=== PATIENT | male | born 1990 | race Asian ===

== ENCOUNTER 2023-09-10 16:05 | Observation (INO) ==
[2023-09-10 16:29] LABS: ABS Eosinophils 0.1 10^3/uL (0.0-0.5); ABS Lymphocytes 1.8 10^3/uL (1.0-4.8); ABS Monocytes 0.5 10^3/uL (0.0-1.1); ABS Neutrophils 4.3 10^3/uL (1.5-7.6); ABS Nucleated RBC 0.02 10^3/ul; Eosinophil % 0.8 %; Hematocrit 47.3 % (38-53); Hemoglobin 16.5 g/dL (13.2-16.3); Lymphocyte % 27.4 %; Mean Corpuscular Hemoglobin 29.9 pg (27-33); Mean Corpuscular Volume 85.5 fL (80-97); Nucleated Red Blood Cells % 0.3 %/100WBC (0.0-0.8); Platelet Count 188 10^3/uL (150-450); Red Blood Count 5.53 10^6/uL (4.06-5.63); Red Cell Distribution Width 13.4 % (12-17); White Blood Count 6.7 10^3/uL (3.6-10.2)
[2023-09-10 16:36] LABS: INR 1.02 (0.83-1.13)
[2023-09-10 17:35] LABS: Albumin 4.6 g/dL (3.2-5.2); Albumin/Globulin Ratio 2.1 (1-3); Creatinine, Serum 1.05 mg/dL (0.67-1.17); Globulin 2.2 g/dL (2-4); Total Bilirubin 0.6 mg/dL (0.2-1.0); Total Protein 6.8 g/dL (6.4-8.9); eGFR CKD-EPI 97.3 (>60)
[2023-09-10 18:02] LABS: High Sensitivity Troponin 1 Hr 14 pg/mL (<20)
[2023-09-10 19:45] LABS: C Reactive Protein 1.03 mg/L (<8.01)
[2023-09-10] MEDS: Iohexol 350 (CONTRAST) 500 ML MDV IV ONE (21:19)
[2023-09-11 01:05] LABS: HDL Cholesterol 55.4 mg/dL
[2023-09-11 01:20] LABS: TSH Ultra Thyroid Stim Horm 1.8 mcIU/mL (0.34-5.60)
[2023-09-11 06:22] LABS: ABS Eosinophils 0.1 10^3/uL (0.0-0.5); ABS Lymphocytes 1.8 10^3/uL (1.0-4.8); ABS Monocytes 0.4 10^3/uL (0.0-1.1); ABS Neutrophils 3.4 10^3/uL (1.5-7.6); ABS Nucleated RBC 0.02 10^3/ul; Eosinophil % 2.2 %; Hemoglobin 16.7 g/dL (13.2-16.3); Mean Corpuscular Hemoglobin 30.4 pg (27-33); Mean Corpuscular Hgb Conc 35.4 g/dL (31-36); Mean Corpuscular Volume 85.8 fL (80-97); Mean Platelet Volume 9.6 fL (7.5-11.2); Nucleated Red Blood Cells % 0.3 %/100WBC (0.0-0.8); Platelet Count 169 10^3/uL (150-450); Red Blood Count 5.48 10^6/uL (4.06-5.63); Red Cell Distribution Width 13.5 % (12-17); White Blood Count 5.8 10^3/uL (3.6-10.2)
[2023-09-11 06:39] LABS: Calcium 9.4 mg/dL (8.6-10.3); Creatinine, Serum 0.97 mg/dL (0.67-1.17)
[2023-09-11 15:20] VITALS: BP 129/79
[2023-09-11] MEDS ORDERED: Ondansetron ODT 4 mg TAB 4 MG TAB SL PRN (16:25)
== END 2023-09-11 17:30 | disposition home or self-care (01) ==
LOC: ED 16:05 → EDHOLD 16:05 → SUATTDRO 21:45 → MEDTELE 23:14
PROVIDERS: ADMIT Internal Medicine; ATTEND Internal Medicine